=== PATIENT | male | born 1970 | race Caucasian/White ===

== ENCOUNTER 2022-04-07 05:13 | Emergency (ER) | payer OTHER ==
[~2022-04-07 05:13] MED LIST: CIPRO500 MG PO; FLAGYL500 MG PO; LORTAB 5-325 M1 EACH PO
[2022-04-07 05:55] LABS: RED BLOOD COUNT 4.5 M/UL (4.20-5.50); WHITE BLOOD COUNT 9.3 K/UL (4.5-11.0)
[2022-04-07 06:18] LABS: BUN/CREATININE RATIO 9 (0-10)
[2022-04-07] MEDS ORDERED: AMOX TR-K CLV1 EAC4 PO (09:04)
== END 2022-04-07 13:05 | disposition home or self-care (01) ==
LOC: ER1 05:13
PROVIDERS: Family Medicine
DX: K57.32 Diverticulitis of large intestine without perforation or abscess without bleeding (principal); I10 Essential (primary) hypertension
CPT/HCPCS: 80053; 81001; 83605; 83690; 85025; 96365; 96366; 96375; 96376; 99284; J1335; J2270; J2405; J3411; J3475; J7030; Q9967